=== PATIENT | female | born 1975 | race Caucasian/White ===

== ENCOUNTER 2019-01-24 12:10 | Inpatient (IN) | payer BC ==
[~2019-01-24] VITALS: Ht 162.6 cm; Wt 65.8 kg
[2019-01-24] MEDS ORDERED: CEFTRIAXONE SODIUM 1 GM ONE (13:03)
[2019-01-24] MEDS ORDERED: SODIUM CHLORIDE 0.9% 1000ML 1,000 ML IV ONE (13:04)
[2019-01-24 14:05] LABS: APPEARANCE,URINE Clear (CLEAR); BILIRUBIN,URINE Negative (NEGATIVE); COLOR,URINE Yellow (YELLOW); GLUCOSE, URINE (UA) Negative (NEGATIVE); KETONES,URINE Negative (NEGATIVE); LEUKOCYTE ESTERASE ,URINE Trace (NEGATIVE); NITRATE,URINE Negative (NEGATIVE); OCCULT BLOOD,URINE Small (NEGATIVE); PROTEIN,URINE Negative (NEGATIVE); UROBILINOGEN,URINE 0.2 mg/dL (0.2-1.0)
[2019-01-24 14:17] LABS: BACTERIA,URINE Rare /HPF (None Seen); RBC,URINE 0-1 /HPF (0-1); SQUAMOUS EPITHELIAL CELL,UR 0-2 /HPF (0-2); WBC,URINE 0-1 /HPF (0-1)
[2019-01-24] MEDS ORDERED: KETOROLAC TROMETHAMINE 30MG/ML ONE (14:42)
[2019-01-24] MEDS ORDERED: ONDANSETRON HCL 4 MG/2 ML VIAL ONE (14:42)
[2019-01-24 14:50] LABS: BASOPHILS % (AUTO) 0.5 % (0.0-5.0); HEMATOCRIT 37.3 % (36-48); LYMPHOCYTES % (AUTO) 17.6 % (21.0-51.0); MEAN CORPUSCULAR HEMOGLOBIN 36.8 pg (27.0-33.0); MEAN CORPUSCULAR HGB CONC 34.7 g/dL (32.0-36.0); MEAN CORPUSCULAR VOLUME 106.1 fL (79-99); NEUTROPHILS % (AUTO) 69.9 % (40.0-77.0); PLATELET COUNT (AUTO) 198 K/uL (130-400); RED BLOOD CELL COUNT(AUTO) 3.51 MIL/uL (4.00-5.50); RED CELL DISTRIBUTION WIDTH 13.2 % (11.0-15.5)
[2019-01-24 15:03] LABS: CREATININE 0.7 mg/dL (0.5-1.5); POTASSIUM 3.3 mmol/L (3.5-5.1)
[2019-01-24] MEDS ORDERED: MORPHINE SULFATE 5 MG/ML VIAL ONE (15:05)
[2019-01-24 15:06] LABS: INR 1.01 (0.85-1.15); PARTIAL THROMBOPLASTIN TIME 25.7 SEC (26.3-35.5); PROTHROMBIN TIME 10.6 SEC (9.6-11.6)
[2019-01-24 15:07] LABS: ALBUMIN 3.7 g/dL (3.5-5.0); BILIRUBIN,TOTAL 0.7 mg/dL (0.2-1.0); MAGNESIUM 2.6 mg/dL (1.80-2.40); TOTAL PROTEIN, SERUM 6.9 g/dL (6.0-8.3)
[2019-01-24 15:27] VITALS: BP 117/74
[2019-01-24 15:43] LABS: ERYTHROCYTE SEDIMENTATION RATE 6 MM/HR (0-20)
[2019-01-24] MEDS ORDERED: HYDROMORPHONE PCA 10 MG/50 ML 50 ML IV PRN (15:45)
[2019-01-24] MEDS ORDERED: NALOXONE HCL 0.4 MG/1 ML ML IVP PRN (15:45)
[2019-01-24] MEDS ORDERED: ALPRAZOLAM 1 MG TAB PO PRN (17:15)
[2019-01-24] MEDS ORDERED: LACTULOSE 20 GM/30 ML UDCUP PO PRN (17:15)
[2019-01-24] MEDS: MORPHINE SULFATE 5 MG/ML VIAL IVP PRN (17:24)
[2019-01-24] MEDS: SODIUM CHLORIDE 0.9% 1000ML 1,000 ML IV SCH (18:08)
[2019-01-24 19:38] VITALS: BP 137/80
[2019-01-24] MEDS: ACETAMINOPHEN 325 MG TAB PO PRN (20:28)
[2019-01-24] MEDS: ONDANSETRON HCL 4 MG/2 ML VIAL IVP PRN (23:26)
[2019-01-25] VITALS: BP 142/84
[2019-01-25] MEDS: PHARMACY COMMUNICATION MISC SCH ×2 (01:15→08:27)
[2019-01-25 04:00] VITALS: BP 131/82
[2019-01-25] MEDS: SODIUM CHLORIDE 0.9% 1000ML 1,000 ML IV SCH ×3 (04:06→21:23)
[2019-01-25] MEDS: ONDANSETRON HCL 4 MG/2 ML VIAL IVP PRN ×3 (05:30→21:23)
[2019-01-25 06:01] LABS: BASOPHILS % (AUTO) 0.4 % (0.0-5.0); EOSINOPHILS % (AUTO) 1.6 % (0.0-8.0); HEMATOCRIT 32.7 % (36-48); LYMPHOCYTES % (AUTO) 6.2 % (21.0-51.0); MEAN CORPUSCULAR HEMOGLOBIN 36.9 pg (27.0-33.0); MEAN CORPUSCULAR HGB CONC 34.6 g/dL (32.0-36.0); MEAN CORPUSCULAR VOLUME 106.4 fL (79-99); MONOCYTES % (AUTO) 9.5 % (3.0-13.0); NEUTROPHILS % (AUTO) 82.3 % (40.0-77.0); NUCLEATED RED BLOOD CELLS 0.1 % (0.0-0.19); PLATELET COUNT (AUTO) 133 K/uL (130-400); RED BLOOD CELL COUNT(AUTO) 3.08 MIL/uL (4.00-5.50); RED CELL DISTRIBUTION WIDTH 12.9 % (11.0-15.5); WHITE BLOOD COUNT (AUTO) 9.7 K/uL (4.8-10.8)
[2019-01-25 06:11] LABS: CREATININE 0.8 mg/dL (0.5-1.5); POTASSIUM 3.4 mmol/L (3.5-5.1)
[2019-01-25 08:00] VITALS: BP 103/76
[2019-01-25] MEDS: ALPRAZOLAM 1 MG TAB PO PRN ×2 (08:29→23:48)
[2019-01-25 11:38] VITALS: BP 103/62
--- NOTE | 2019-01-25 12:22 | NUR ---
DC PLAN PER PATIENT, STATES SHE IS INDEPENDENT, LIVES WITH MOTHER AND BROTHER, NO PROVIDER, HAS WALKER, CANE AND WHEELCHAIR AND FEELS SAFE AT HOME. Addendum: 01/25/19 at 1223 by JONATAN BARBOSA RN CM Amended: Links added.
[2019-01-25] MEDS: KETOROLAC TROMETHAMINE 30MG/ML IV SCH (13:38)
[2019-01-25] MEDS: CEFTRIAXONE SODIUM 1 GM IVP SCH (13:39)
--- NOTE | 2019-01-25 13:54 | NUR ---
DR SIDRA EMERSON REGARDING USE OF PICC LINE- STATED OK TO USE, START POTASSIUM PROTOCOL AND DC AFTER BM NOTED AND CARRIED OUT
[2019-01-25] MEDS ORDERED: POTASSIUM CHLORIDE 10% ELIXIR 20 MEQ/15 ML UDCUP PO PRN (14:15)
[2019-01-25] MEDS ORDERED: POTASSIUM CHLORIDE 20MEQ/100ML 100 ML IV PRN (14:15)
[2019-01-25] MEDS ORDERED: LIDOCAINE HCL-MPF 1% 2ML VIAL IV PRN (14:15)
[2019-01-25 15:56] VITALS: BP 108/68
[2019-01-25] MEDS: POTASSIUM CHLORIDE 20 MEQ ERTAB PO PRN ×2 (16:07→18:11)
[2019-01-25 20:06] VITALS: BP 123/73
--- NOTE | 2019-01-25 23:50 | NUR ---
NOTE PATIENT DRANK HER TEA THAT SHE USES TO HAVE BM, BUT IT HAS NOT GIVEN HER ANY RESULTS SO FAR. OFFERED HER THE LACTULOSE LAXATIVE, BUT SHE SAYS SHE DOES NOT WANT TO TAKE IT AT THIS TIME.
[2019-01-26 00:06] VITALS: BP 110/81
--- NOTE | 2019-01-26 01:30 | NUR ---
NOTE PATIENT REMAINS WITHOUT HAVING A BM. MENTIONED LACTULOSE TO HER AGAIN. SHE SAYS THE REASON SHE DOES NOT WANT TO TAKE IT IS BECAUSE SHE GET A LOT OF GAS AND DISCOMFORT WITH THAT MEDICATION. WANTS TO CONTINUE TO TRY HER TEA
--- NOTE | 2019-01-26 03:15 | NUR ---
NOTE OFFERED PATIENT LACTULOSE ONCE AGAIN, BUT DECLINED. SAYS SHE WANTS TO WAIT TO DR VALENTE TO ASK HIM FOR A DIFFERENT LAXATIVE. CONTINUES DRINKING LIQUIDS AND HAVING VOMITING EPISODES. MEDICATING WITH ZOFRAN FOR NAUSEA AND ENCOURAGING PATIENT TO HOLD OFF ON DRINKING FLUIDS WHILE SHE IS NAUSEATED. ACKNOWLEDGES UNDERSTANDING.
[2019-01-26] MEDS: ONDANSETRON HCL 4 MG/2 ML VIAL IVP PRN ×3 (03:18→18:48)
[2019-01-26 04:06] VITALS: BP 126/76
[2019-01-26] MEDS ORDERED: CLON2TAB11 PO (04:30)
--- NOTE | 2019-01-26 06:58 | NUR ---
ROUNDS DR. VALENTE HERE TO SEE PATIENT. RECEIVED ORDERS FOR OK TO CONTINUE HER HOME MEDICATION, BENADRYL FOR ITCHING ON HER BACK, MOM FOR LAXATIVE AND IF INEFFECTIVE, DULCULAX SUPP. ALSO TO DO A BLADDER SCAN TO SEE IF SHE IS RETAINING SHE HAS HISTORY OF THIS IN THE PAST HE SAYS.
[2019-01-26] MEDS ORDERED: MAGNESIUM HYDROXIDE 30 ML/UDCUP PO PRN (07:00)
[2019-01-26 08:00] VITALS: BP 99/60
[2019-01-26] MEDS: SODIUM CHLORIDE 0.9% 1000ML 1,000 ML IV SCH ×2 (09:15→22:37)
[2019-01-26] MEDS: CLONAZEPAM 2 MG TABLET PO SCH ×3 (09:35→23:19)
[2019-01-26] MEDS: POTASSIUM CHLORIDE 20 MEQ ERTAB PO PRN ×3 (09:36→18:48)
[2019-01-26] MEDS: KETOROLAC TROMETHAMINE 30MG/ML IV SCH (09:36)
--- NOTE | 2019-01-26 10:22 | NUR ---
PT SHOWER PT REQUESTING SHOWER AT THIS TIME. STATED SHE HAS "PERSONAL REASONS" TO WHY SHE WANTS TO SHOWER. FREEMAN GERARDO ASSISTING PT TO SHOWER AND PROVIDING LINENS
[2019-01-26] MEDS: DIPHENHYDRAMINE HCL 25 MG CAPSULE PO PRN ×2 (10:48→23:19)
[2019-01-26] MEDS: ALPRAZOLAM 1 MG TAB PO PRN ×2 (10:48→18:48)
--- NOTE | 2019-01-26 11:30 | NUR ---
PT DONE WITH SHOWER PT DONE WITH SHOWER. THIS NURSE EXPLAINED TO PT THAT SHE WOULD BENEFIT FROM LAYING DOWN AND RELAXING FOR A MOMENT TO LET HER BODY REST. THIS NURSE PLACED PT TO BED WITH SEVERAL BLANKETS AND 4 HEATING PACKS SPORADICALLY AROUND BODY PT STATES SHE IS COLD. THIS NURSE TURNED OFF ALL LIGHTS AND ATTEMPTED TO TURN OFF TV TO WHICH PT STATES TO LEAVE IT ON. VOLUME TURNED DOWN. THIS NURSE LEFT ROOM WITH PT IN BED, EYES CLOSED AND A QUIET ENVIRONMENT. WILL CONT MONITOR
[2019-01-26] MEDS: CEFTRIAXONE SODIUM 1 GM IVP SCH (11:36)
[2019-01-26 12:00] VITALS: BP 121/59
--- NOTE | 2019-01-26 12:14 | NUR ---
PICC LINE THIS NURSE ENTERED ROOM AT THIS TIME TO ASSESS PT PROGRESS AND BEHAVIOR. PT SEEN WITH PICC TUBING TAUT AND STREWN ACROSS ROOM WHILE PT WAS DIGGING THROUGH BELONGINGS. THIS NURSE ASSESSED SITE AND NOTED DRESSING ON PICC LIFTING OFF ARM ALMOST EXPOSING CATHETERS. THIS NURSE THEN BEGAN EDUCATING PT ON IMPORTANCE OF BEING AWARE OF PICC LINE AND CONNECTED TUBING. PT VERBALIZED UNDERSTANDING
[2019-01-26] MEDS: BISACODYL 10 MG SUPP.RECT RC PRN (12:30)
[2019-01-26 16:00] VITALS: BP 120/70
--- NOTE | 2019-01-26 19:00 | NUR ---
PT SHOWER PT SHOWERED X 4 TIMES THIS SHIFT STATING SHE FELT "DIRTY". PT ASSISTED BY FUNERAL HOME MANAGER AND NURSE EVERY TIME. NEW LINEN AND GOWN AND SOCKS, TOWELS PROVIDED X 4 TIMES.
--- NOTE | 2019-01-26 19:55 | NUR ---
NOTE PATIENT REPORTS SHE HAS NOT HAD ANY BOWEL MOVEMENTS TODAY AFTER HAVING RECEIVED THE LAXATIVES ORDERED BY DR. VALENTE. SHE CONTINUES WITH RECURRENT NAUSEA THAT GETS RELIVED WITH ZOFRAN AND SOME PERIODIC VOMITING EPISODES AFTER DRINKING A LARGE AMOUNT OF FLUIDS AT ONCE. ENCOURAGED HER TO TAKE LESS FLUID OR JUST TAKE ICE CHIPS TO MINIMIZE VOMITING. SHE ACKNOWLEDGES UNDERSTANDING RECOMMENDATIONS. PATIENT SAYS SHE DOES NOT FEEL WELL TO GO HOME YET. CALLED DR. VALENTE TO UPDATE HIM ON PATIENT. LEFT MESSAGE ON VOICEMAIL.
[2019-01-26 20:16] VITALS: BP 116/68
[2019-01-27] VITALS (7 sets, daily range): BP systolic 87–144; BP diastolic 50–81
[2019-01-27] MEDS: ONDANSETRON HCL 4 MG/2 ML VIAL IVP PRN ×2 (01:24→08:20)
[2019-01-27] MEDS: ACETAMINOPHEN 325 MG TAB PO PRN (01:28)
--- NOTE | 2019-01-27 01:38 | NUR ---
NOTE PATIENT REPORTS HAVING NAUSEA. MEDICATED WITH ZOFRAN. PATIENT ALSO REPORTS HAVING HAVING URGENCY AND SHE HAS JUST COME BACK FROM URINATING A FEW MINUTES AGO. DID A BLADDER SCAN POST VOID. SHE HAD 215 ML READING POST VOID RESIDUAL. PLACE NUN CAP AND INSTRUCTED THAT WE WILL BE MEASURING HER URINE OUTPUT. WILL REINFORCE/REMIND PERIODICALLY SHE TENDS TO FORGET. CONTINUES TO USE REGIONAL COORDINATOR FOR PAIN CONTROL. SHE ALSO KEEPS ASKING FOR JUICES. HAVE KEPT REMINDING HER TO KEEP HER FLUID INTAKE TO SIPS AND NOT FREE DRINKING TO MINIMIZE HER VOMITING EPISODES. SHE ACKNOWLEDGES AND SAYS WILL TRY TO FOLLOW IT. PATIENT REPORT SHE IS NOT SLEEPY. SHE HAS NOT SLEPT YESTERDAY NIGHT OR TONIGHT SO FAR. IN REPORT WAS TOLD BY DAY NURSE SHE DID NOT SLEEP EITHER. INQUIRED WITH HER IF SHE TAKES ANY MEDICATIONS TO HELP HER SLEEP, BUT SAYS SHE HAS BEEN PRESCRIBED ONE AND DOES NOT LIKE HOW IT MAKES HER FEEL SO SHE DOES NOT TAKE IT.
[2019-01-27] MEDS: SODIUM CHLORIDE 0.9% 1000ML 1,000 ML IV SCH ×2 (05:15→12:51)
--- NOTE | 2019-01-27 05:30 | NUR ---
NOTE PATIENT TOOK SHOWER. SHE FELT WEAK AFTERWARDS AND HELPED HER INTO BED. INSTRUCTED HER TO STAY IN BED UNTIL IT PASSES AND SHE FEELS BETTER, SHE TENDS TO SPEND MOST OF THE TIME WAKING AROUND AND MINIMAL IN BED LAYING DOWN.
[2019-01-27] MEDS: ALPRAZOLAM 1 MG TAB PO PRN (06:32)
[2019-01-27] MEDS: FAMOTIDINE 20MG TAB 20 MG TAB PO PRN ×2 (06:39→08:20)
--- NOTE | 2019-01-27 06:39 | NUR ---
NOTE PATIENT REPORTS SHE HAS PAIN AND POINTS TO EPIGASTRIC AREA AND UPPER ABDOMEN. UNABLE TO CLEARLY DESCRIBE PAIN WHEN ASKED SHE DIVERTS AND CHANGES CONVERSATION TOPIC. SHE HAS PEPCID ON HER PRN LIST. MEDICATED WITH IT. ALSO FEELS ANXIOUS SO MEDICATED WITH XANAX WELL.
--- NOTE | 2019-01-27 06:44 | NUR ---
NOTE DR. VALENTE HERE TO SEE PATIENT. INFORMED HER OF CONTINUED NAUSEA/VOMITING AND UNABLE TO KEEP LIQUID DIET DOWN. ALSO LAXATIVE GIVEN YESTERDAY PATIENT REPORTS HAVE NOT HAD ANY RESULTS IN HAVING A BM. PATIENT HAS NOT SLEPT AT ALL FOR 2 NIGHTS. AND HAS SHOWN MANY EPISODES OF ANXIETY. DR. VALENTE TOLD PATIENT THAT HE HAD BEEN HOPING FOR HER TO BE ABLE TO DISCHARGE HER SOON BUT WITH CURRENT SYMPTOMS SHE NEEDS TO STAY AND BE SEEN BY A GI DOCTOR. ORDERS RECEIVED FOR GI ONCALL CONSULT. PATIENT INQUIRED IF IT WOULD BE DR. Brenden BARBOSA (SAYS SHE HAS SEEN HIM INTHE PASSED) LOOKED UP ON THE ONCALL SCHEDULE AND IT SAYS IS DR. BARRETO. INFORMED PATIENT WELL PLACED ORDER IN COMPUTER.
--- NOTE | 2019-01-27 07:00 | NUR ---
PT SHOWERED PT SHOWERD. LINENS, TOWELS AND GOWN PROVIDED BY NATIONAL OPELINT ANALYST
--- NOTE | 2019-01-27 08:15 | NUR ---
PT PLACED TO BED PT HELPED TO BED BY THIS NURSE PT WAS LOSING EYES AND HEAD ROLLING BACK WHILE STANDING UP. PT HAS NOT SLEPT X 2 DAYS. (DR VALENTE MADE AWARE). PT STATES SHE HAS NOT BEEN RECEIVING ALL HER MEDS HOWEVER DR VALENTE STATES SHE IS. PT ASSISTED TO BED AT THIS TIME R/T DROWSINESS. WILL CONT TO MONITOR
--- NOTE | 2019-01-27 08:15 | NUR ---
MEDS THIS NURSE ALSO ATTEMPTED TO ADMINISTER MORNING MEDICATIONS WHIL IN ROOM WITH PATIENT. PATIENT VISIBLY DROWSY AND DOZING IN AND OUT OF SLEEP WHILE STANDING. NARCOTICS HELD AT THIS TIME
[2019-01-27] MEDS: CLONAZEPAM 2 MG TABLET PO SCH ×3 (08:20→21:00)
[2019-01-27] MEDS: KETOROLAC TROMETHAMINE 30MG/ML IV SCH ×2 (08:20→09:00)
--- NOTE | 2019-01-27 09:00 | NUR ---
PT CAME OUT OF ROOM PT CAME OUT OF ROOM STATING SHE NEEDED HELP. UPON ENTRANCE- PT HAD IV TUBING WRAPPED AROUND POLE AND HAD PICC LINE PORT NOTED TO BE PULLING FROM THE TENSION OF PT BEING ACROSS THE ROOM. THIS NURSE EDUCATED PT ON IMPORTANCE OF BEING AWARE OF PICC LINE AND TUBING. PT VERBALIZED UNDERSTANDING. PT THEN STATES SHE WAS REQUESTING HELP TO SHOWER AFTER SOILING THE BED WITH FECES. AT THIS TIME PT IS EROS WEARING BRA AND SHEETS ARE OFF OF BED AND THROWN IN SHOWER. THIS NURSE LEFT ROOM TO GET SUPPLIES TO COVER PICC LINE WHILE PT SHOWERS AND ASK OWNER/OPERATOR TO ASSIST PATIENT. UPON ENTERING ROOM AGAIN THIS NURSE ASKED IF PT HAD A SUFFICIENT ENOUGH BOWEL MOVEMENT AND IF I COULD SEE IT TO REPORT TO GI MD AND PCP TO WHICH PT STATED " WHY DOES IT MATTER? WHY DO YOU NEED TO SEE MY POOP? YOU KNOW WHY I AM HERE. YOU ARE TAKING AWAY THE ONLY DIGNITY I HAVE" THIS NURSE EXPLAINED TO THE PT THAT GIVEN THE CIRCUMSTANCES OF HER ADMISSION AND WHY SHE IS HERE, IT IS ONE OF THE FACTORS THAT PLAY IN TO THE DIAGNOSIS. PT BECAME VERY AGITATED AFTER THIS DISCUSSION AND STATED SHE FELT DISRESPECTED. THIS NURSE TRIED TO EXPLAIN TO PATIENT THAT WE ARE NOT HERE TO GLOBE CLEANER HER IT IS ONLY A PART OF OUR JOB. THIS NURSE ALSO ATTEMPTED TO EXPRESS TO THE PATIENT THE CONCERN OVER HER BEHAVIORS AND INABILITY TO SIT STILL AND FOLLOW DEMANDS REGARDING HER CARE AND SUGGESTIONS BY NURSE/STAFF. THIS NURSE ASKED PT IF THERE ARE ANY FAMILY MEMBERS WILLING TO COME IN TO CONSOLE PATIENT AND HELP HER RELAX WHILE WE DEAL WITH HER UNDERLYING GI ISSUES TO WHICH PT STATES " YOU ARE OBVIOUSLY THE ONE THAT NEEDS TO BE EDUCATED ON MY CONDITION AND NOT MY FAMILY YOU ARE BEING INSENSITIVE TO ME RIGHT NOW. WOULD YOU LIKE YOUR FAMILY TO HEAR THIS IF THEY WERE IN THE HOSPITAL?" THIS NURSE ATTEMPTED TO REDIRECT PT TO THE SHOWER WITH OWNER/OPERATOR TO WHICH PT STATES " LEAVE ME ALONE I NEED MY PRIVACY" THIS NURSE ATTEMPTED TO REDIRECT PT TO THE ISSUE THAT SHE HAS RECEIVED SEVERAL NARCOTICS AND CANNOT BE LEFT ALONE TO SHOWER DUE TO HIGH RISK FOR FALLS. THIS PT CONTINUED TO SPEAK ON THE MATTER OF DISRESPECT. ELECTROMECHANICAL ENGINEER CALLED AT THIS TIME
--- NOTE | 2019-01-27 09:45 | NUR ---
CUPOLA MAN IN TO TALK WITH PATIENT HOUSE SUP IN ROOM TO CONSOLE PT
--- NOTE | 2019-01-27 09:54 | NUR ---
HS EXITED ROOM HOUSE SUP EXITED ROOM TO TELL THIS NURSE PT WILL BE TRANSFERED TO ROOM 327
--- NOTE | 2019-01-27 09:56 | NUR ---
PT EXITED ROOM PT EXITED ROOM STATING SOMEONE TOOK HER CLOTHES THAT SHE TOOK OFF AFTER SOILING HER SELF. PT STATES IT MIGHT HAVE BEEN MEDICAL TYPIST. MEDICAL TYPIST MADE AWARE.
--- NOTE | 2019-01-27 10:02 | NUR ---
FOUND CLOTHES AFTER SEVERAL MINUTES OF LOOKING THROUGH SOILED LINEN ROOM, PT STATES SHE FOUND HER CLOTHES IN TRASH CAN IN RESTROOM IN A BAG WHERE SHE FORGOT SHE PLACED THEM AFTER SOILING THEM
--- NOTE | 2019-01-27 10:30 | NUR ---
. RECEIVED REPORT AND PT TO ROOM . DILAUDID WELDING MACHINE OPERATOR PLASMA ARC IN USE WITH 4.3 ML IN CASSETTE AND D5NS AT 100ML/HR. RESTLESS AND ASKING FOR TORADOL. INFORMED DAILY DOSE HAD BEEN GIVEN.
--- NOTE | 2019-01-27 10:34 | NUR ---
1037 Met with pt to address her concerns regarding staff states nurse and radio personality very disrespectful and may her feel humiliated on the way they ask to see her "oop" inform its part of the process do to her diagnosis. inform concerns will be pass to the staff and Meanwhile pt agreed with assignment and room change but will like for staff to be "reprimanded" inform report will be given to director she verbalized understanding. primary nurse and radio personality made aware of the above, pt to be transfer to room 327 charge nurse also made aware of the above. Pt call back states now her pants and undergarment with the "oop" are missing . as per PLATE GLASS POLISHER they were found in the bathroom trach where pt had place them. Jesse mendenhall
--- NOTE | 2019-01-27 11:00 | NUR ---
DR MARY LOU EMERSON REGARDING GI CONSULT. PAGED TO NURSE ALEXY AT [phone]
--- NOTE | 2019-01-27 11:14 | NUR ---
REPORT AND ROOM TRANSFER REPORT GIVEN TO TEJINDER RN, CN AND PT TRANSFERRED TO [facility]
--- NOTE | 2019-01-27 11:45 | NUR ---
GI CONSULT IN PLACE AND DR. BARRETO HAS CALLED. PT. NAME, ROOM # AND DX. GIVEN.
[2019-01-27] MEDS: CEFTRIAXONE SODIUM 1 GM IVP SCH (12:36)
--- NOTE | 2019-01-27 19:00 | NUR ---
DR. BARRETO CALLED IN WITH ORDERS ENTERED AND ENDORSED TO INCOMING NURSE
--- NOTE | 2019-01-27 19:30 | NUR ---
SHIFT REPORT RECEIVED SHIFT REPORT FROM [facility]. PATIENT HAS ORDERS FOR CLEAR LIQUID DIET BUT HAS CHIPS, SALSA, AND CHEESE CAKE AT BEDSIDE. PATIENT IS CURRENTLY RESTING COMFORTABLY AND IS ASLEEP.
--- NOTE | 2019-01-27 21:00 | NUR ---
PATIENT LETHARGIC, IS AROUSABLE TO VOICE BUT FALLS BACK ASLEEP RIGHT AWAY. APPEARS TO BE IN A DAZE AND ANSWERS QUESTIONS SLOWLY. PATIENT HAS SCHEDULED CLONAZEPAM 2MG TO BE GIVEN, WILL ATTEMPT TO GIVE AT A LATER TIME ONCE PATIENT IS MORE ALERT.
--- NOTE | 2019-01-27 22:30 | NUR ---
NEW ORDERS PATIENT WAS MADE AWARE OF NEW ORDER'S RECEIVED BY DR. BARRETO REGARDING THE NG TUBE PLACEMENT, TAP WATER ENEMA, AND NPO STATUS. PATIENT STATED SHE "WOULD LIKE TIME TO THINK ABOUT IT" BEFORE AGREEING TO HAVE NG TUBE PLACED AND TAP WATER ENEMA. SHE STATED SHE WOULD LET PRIMARY NURSE KNOW WHEN SHE WAS READY.
[2019-01-28] VITALS (7 sets, daily range): BP systolic 100–132; BP diastolic 59–79
[2019-01-28] MEDS: MORPHINE SULFATE 5 MG/ML VIAL IVP PRN ×2 (00:21→15:03)
[2019-01-28] MEDS: ONDANSETRON HCL 4 MG/2 ML VIAL IVP PRN ×5 (00:26→21:09)
[2019-01-28] MEDS: SODIUM CHLORIDE 0.9% 1000ML 1,000 ML IV SCH ×3 (01:15→21:15)
[2019-01-28] MEDS: KETOROLAC TROMETHAMINE 30MG/ML IV SCH (06:17)
[2019-01-28] MEDS: CLONAZEPAM 2 MG TABLET PO SCH ×3 (08:43→21:09)
[2019-01-28] MEDS: HYDROMORPHONE HCL 0.5 MG/0.5 ML ML IVP PRN ×4 (08:44→21:10)
[2019-01-28] MEDS: CEFTRIAXONE SODIUM 1 GM IVP SCH (15:03)
[2019-01-28] MEDS: DIPHENHYDRAMINE HCL 25 MG CAPSULE PO PRN (15:03)
--- NOTE | 2019-01-28 16:10 | NUR ---
RD Notification Pt admitted for Intractable headache, nausea, vomiting. Pt history of neurogenic bladder and bowel, hernia. Pt with Clear Liquid diet, PO intake at 75%, Pending Gastroenterology evaluation as per EMR. 3X attempt to visit, Pt in discussion with Nursing. Recommend Ensure Clear with meals at this time, RD to follow up. Pt LBM 01/26. Pt monitored labs: Ca 8.0, Mg 2.60, Lipase 82. RD to continue to monitor. Please notify RD as additional nutrition concerns arise. Thank you. Addendum: 01/28/19 at [address] Amended: Links added.
--- NOTE | 2019-01-28 17:02 | NUR ---
PAIN MEDICATION Patient stated she needed pain medication for level 10 and dilaudid was offered. She had had morphine earlier and was not time for it. Initially she accepted dilaudid and medication was pulled and scanned. Then, as medication was about to be administered patient did not verbalized OK to nurse when nurse asked if she could go ahead and administer it. Pt went back and forth, back and forth about receiving dilaudid at this time. Requested to have all her pain medications explained several times, which was done. Pt asked for the nurse's word that she would receive her pain medication when she needed it. Patient was informed that if she was in pain and if it was not time to administer a medication, then nurse would call her physician. Patient stated she did not want for her doctor to be called. Patient was reassured several times that her pain needs would be addressed as they aroused, to call her nurse and notify her of her pain. But she decided at the last moment she was going to wait until 6:00pm for her pain medication. Charge nurse updated.
--- NOTE | 2019-01-28 18:15 | NUR ---
NURSING OBSERVATION PT WAS GIVEN HER PAIN MED, PT FEELS LIKE SHE HAS TO JUSTIFY HERSELF ON GETTING PAIN MEDICATION, PT WOULD LIKE FOR DR. VALENTE TO START DATA ENTRY MACHINE OPERATOR MORPHINE, OFFERED TO CALL DR. VALENTE BUT LATER SAID SHE WILL TALK TO HIM IN THE MORNING.
[2019-01-29 03:00] VITALS: BP 101/72
[2019-01-29] MEDS: ONDANSETRON HCL 4 MG/2 ML VIAL IVP PRN ×3 (04:01→23:00)
[2019-01-29] MEDS: MORPHINE SULFATE 5 MG/ML VIAL IVP PRN (04:02)
[2019-01-29] MEDS: HYDROMORPHONE HCL 0.5 MG/0.5 ML ML IVP PRN ×3 (06:39→15:38)
[2019-01-29] MEDS: SODIUM CHLORIDE 0.9% 1000ML 1,000 ML IV SCH (07:15)
[2019-01-29 08:00] VITALS: BP 96/62
[2019-01-29] MEDS: CLONAZEPAM 2 MG TABLET PO SCH ×3 (10:41→22:07)
[2019-01-29] MEDS: KETOROLAC TROMETHAMINE 30MG/ML IV SCH (10:43)
[2019-01-29] MEDS: DIPHENHYDRAMINE HCL 25 MG CAPSULE PO PRN ×2 (10:49→22:08)
[2019-01-29 12:00] VITALS: BP 123/74
[2019-01-29] MEDS: CEFTRIAXONE SODIUM 1 GM IVP SCH (14:58)
--- NOTE | 2019-01-29 15:43 | NUR ---
NURSING NOTE Patient's issue today is pain. Also, unable to have bowel movement. And nausea and emesis X 1. Patient has been drinking large amounts of coffee and teas that she has from home. However, states she has not have a bowel movement. Her abdomen is soft, with normoactive bowel sounds but it is noted distended. She has been medicated for nausea. She has had offered twice laxative. Initially she stated she would take a suppository, but not lactulose and not milk of magnesia. Then she stated she was going to wait before taking the suppository. At this time she reported again that she has had no bowel movement. The suppository was offered again. She thought about it and stated she was going to wait for a little bit. Her pain has been addressed with Dr. Kenny. He stated no morphine and D/C the morphine patient was on and kept on dilaudid 0.5mg IV Q3H PRN and patient has been receiving it. Her abdominal pain was also reported to Dr. Kenny and her neck pain as well. He ordered an EKG which was done and showed normal sinus rhythm. And also ordered x-rays of the areas where patient reports pain. The X-Rays were done and results are pending. A psychiatrist consult was also ordered S/T her history. Psychiatrist note in chart. Patient has been comin got nurse's station multiple times and calling nurse as soon as nurse has just had a conversation with her. She has come to other patient's rooms where nurse is wanting to talk to nurse at that very moment and place. She brought a hospital bucket with a very large amount of clear, orange fluid, which she claimed was her emesis. Dr. Kenny has been kept updated on her requests.
[2019-01-29 16:00] VITALS: BP 118/74
[2019-01-29] MEDS ORDERED: HYDROMORPHONE PCA 10 MG/50 ML 50 ML IV PRN (16:15)
[2019-01-29 19:00] VITALS: BP 117/73
[2019-01-29] MEDS ORDERED: HYDROMORPHONE 1 MG/1 ML AMP IVP ONE (19:45)
[2019-01-29 23:00] VITALS: BP 114/60
[2019-01-30 03:00] VITALS: BP 104/66
[2019-01-30] MEDS: SODIUM CHLORIDE 0.9% 1000ML 1,000 ML IV SCH ×2 (03:15→23:15)
[2019-01-30 05:14] LABS: HEMATOCRIT 27.6 % (36-48); MEAN CORPUSCULAR HEMOGLOBIN 37.5 pg (27.0-33.0); MEAN CORPUSCULAR VOLUME 107.4 fL (79-99); NUCLEATED RED BLOOD CELLS 0.4 % (0.0-0.19); PLATELET COUNT (AUTO) 140 K/uL (130-400); RED BLOOD CELL COUNT(AUTO) 2.57 MIL/uL (4.00-5.50); RED CELL DISTRIBUTION WIDTH 13.1 % (11.0-15.5); WHITE BLOOD COUNT (AUTO) 2.3 K/uL (4.8-10.8)
[2019-01-30 05:23] LABS: CREATININE 0.6 mg/dL (0.5-1.5); POTASSIUM 3.5 mmol/L (3.5-5.1)
[2019-01-30 06:03] LABS: BASOPHILS % (MANUAL) 1 % (0-2); EOSINOPHILS % (MANUAL) 5 % (1-6); LYMPHOCYTES % (MANUAL) 28 % (22-44); MAN.DIFF COMMENT-IMPRESSION MANUAL DIFFERENTIAL; MONOCYTES % (MANUAL) 13 % (2-9); SEGMENTED NEUTROPHILS % 53 % (40-70)
[2019-01-30 06:04] LABS: PLATELET MORPHOLOGY COMMENT ADEQUATE
[2019-01-30 07:02] LABS: ALANINE AMINOTRANSFERASE 46 U/L (12-78); ALBUMIN 2.7 g/dL (3.5-5.0); ASPARTATE AMINOTRANSFERASE 50 U/L (10-37); BILIRUBIN,TOTAL 0.2 mg/dL (0.2-1.0); TOTAL PROTEIN, SERUM 4.9 g/dL (6.0-8.3)
[2019-01-30 07:17] LABS: BILIRUBIN,DIRECT < 0.1 mg/dL (0.0-0.3)
[2019-01-30 07:18] LABS: LIPASE < 50 U/L (114-286)
--- NOTE | 2019-01-30 08:00 | NUR ---
NEEDS TO BE MONITORED CLOSELY,STUMBLES AROUND ALOT AND DOES NOT FOLLOW COMMANDS Addendum: 01/30/19 at 2012 by ALEXY WAKEFIELD RN RN Amended: Links added.
[2019-01-30 08:47] VITALS: BP 121/64
[2019-01-30] MEDS: CLONAZEPAM 2 MG TABLET PO SCH ×3 (10:36→20:37)
[2019-01-30] MEDS: HYDROMORPHONE HCL 0.5 MG/0.5 ML ML IVP PRN ×3 (10:36→22:31)
[2019-01-30 11:00] VITALS: BP 102/60
--- NOTE | 2019-01-30 12:39 | NUR ---
PT WITH MULTIPLE TRIPS TO NURSE'S STATION WITH A VARIETY OF C/O. REQUESTING ORDER FOR PRN CLOBETASOL FOR PSORIASIS AND STATES FEELS THOUGH SHE IS DEVELOPING A "YEAST INFECTION". PT VERY ANXIOUS, REPORTS DR VALENTE TOLD HER SHE HAS AN "ABSCESS IN MY SPINE AND THAT'S WHY HE WANTED TO DO THE MRI TODAY." PT IS ALSO NOTED HAVING MULTIPLE LARGE AMOUNTS OF EMESIS, SOME NEARLY 2 LITERS, IMMEDIATELY AFTER DRINKING LARGE AMOUNTS OF FLUID (IE WATER AND COFFEE). REC'D ORDERS TO RE-COLLECT URINE FOR UA/UCX, AND CLOBETASOL REQUESTED. ALSO, TO INSTRUCT PT SLOW DOWN WHEN DRINKING FLUIDS, LIMIT CLEAR LIQUIDS TO 1 CUP AT A TIME. ORDERS ENTERED. ALSO REC'D ORDERS TO CONSULT DR DUEÑAS/NEURO. NOTIFIED DR LEANA BAEZ'S BAR CATCHER. SHE STATED DR DUEÑAS HAS GONE HOME FOR THE DAY, WILL BE ABLE TO SEE IN AM.
[2019-01-30] MEDS: CLOBETASOL PROPIONATE TP PRN (15:43)
[2019-01-30] MEDS: ONDANSETRON HCL 4 MG/2 ML VIAL IVP PRN (15:44)
[2019-01-30] MEDS: CEFTRIAXONE SODIUM 1 GM IVP SCH (15:48)
[2019-01-30 16:00] VITALS: BP 114/70
--- NOTE | 2019-01-30 16:00 | NUR ---
CONTINUES TO BMAKE TRIPS TO NURSES STATION FREQUENTLY WITH MULTIPLE C/O, PAIN NAUSEA NEEDS MORE PAIN MEDICATION AND ACCUSES NURSES OF NOT PAYING ATTENTION TO HER AND HOW SHE IS VERY SICK.
[2019-01-30 19:00] VITALS: BP 116/74
[2019-01-30] MEDS: DIPHENHYDRAMINE HCL 25 MG CAPSULE PO PRN (20:37)
--- NOTE | 2019-01-30 22:41 | NUR ---
Paged DR. Kenny regarding patient requesting IV benadryl for itchiness. Pending call back
[2019-01-30 23:00] VITALS: BP 121/73
[2019-01-31] MEDS: ONDANSETRON HCL 4 MG/2 ML VIAL IVP PRN ×3 (01:54→22:01)
[2019-01-31 03:00] VITALS: BP 121/75
[2019-01-31] MEDS: HYDROMORPHONE HCL 0.5 MG/0.5 ML ML IVP PRN ×4 (03:14→18:34)
[2019-01-31 06:06] LABS: BILIRUBIN,URINE Negative (NEGATIVE); COLOR,URINE Yellow (YELLOW); GLUCOSE, URINE (UA) Negative (NEGATIVE); KETONES,URINE Negative (NEGATIVE); LEUKOCYTE ESTERASE ,URINE Trace (NEGATIVE); NITRATE,URINE Negative (NEGATIVE); OCCULT BLOOD,URINE Negative (NEGATIVE); PROTEIN,URINE Negative (NEGATIVE); UROBILINOGEN,URINE 0.2 mg/dL (0.2-1.0)
[2019-01-31 06:08] LABS: APPEARANCE,URINE SLIGHTLY CLOUDY (CLEAR)
[2019-01-31 06:20] LABS: BACTERIA,URINE None Seen /HPF (None Seen); RBC,URINE None Seen /HPF (0-1); SQUAMOUS EPITHELIAL CELL,UR Rare /HPF (0-2); WBC,URINE 0-1 /HPF (0-1)
[2019-01-31 07:30] VITALS: BP 115/69
[2019-01-31] MEDS: CLONAZEPAM 2 MG TABLET PO SCH ×3 (08:14→22:01)
--- NOTE | 2019-01-31 09:00 | NUR ---
ASSESSMENT.C/O OF HURTING,ABD AND NECK , DILAUDID TYPING OFFICE WORKER IN USE BUT STATES DOES NOT REALLY HELP MUCH ASKING FOR DILAUDID BOLUS AND WANTS DR. VALENTE CALLED, SHE FEELS MORPHINE WILL HELP HER MORE
[2019-01-31 11:00] VITALS: BP 115/76
--- NOTE | 2019-01-31 13:00 | NUR ---
HAS SPENT MOST OF TIME MAKING TRIPS TO NURSES STATION AND [employer] MACHINE. SPILLING WATER, COFFEE AND WILL NOT FOLLOW ANY INST. GIVEN.AT ALL TIMES ASKING FOR NAUSEA OR PAIN MEDICATION AND WITH MULTIPLE C/O. KEEPS C/O OF NAUSEA AND WILL SHOW US AMNA FULL OF LIQUIDS WHICH DO NOT MAKE SENSE.
[2019-01-31] MEDS: CEFTRIAXONE SODIUM 1 GM IVP SCH (13:51)
--- NOTE | 2019-01-31 15:18 | NUR ---
Nutrition f/u: Pt with diet advanced to full liquid diet. At time of RD visit, pt with container filled with what she said was vomit. Pt with facial expression of pain. Pt states she has n/v with pain to her neck. Notified nursing staff about pt's concerns. Pt also requesting solid foods such as: steak, fish, vegetables and fruit. Explained to patient unable to advance diet due to her current symptoms. Pt verbalize understanding. Recommendations: Continue current diet therapy until n/v resolves. Monitor I/O's. Consult RD as nutrition concerns arise. When medically feasible, advance diet to GI soft/bland diet therapy. Addendum: 01/31/19 at [address] Amended: Links added.
[2019-01-31 16:00] VITALS: BP 118/70
--- NOTE | 2019-01-31 16:00 | NUR ---
ALL IV TUBINGS CHANGED OUT AGAIN TODAY, GETS HERSELF TANGLED UP WITH IV POLES AND PULL TUBING TIGHT . PICC LINE DRESSING ALSO CHANGED OUT DAILY SHE CONTINUES TO GET IT WET
[2019-01-31] MEDS: SODIUM CHLORIDE 0.9% 1000ML 1,000 ML IV SCH (19:15)
[2019-01-31] MEDS: CLOBETASOL PROPIONATE TP PRN (19:33)
[2019-01-31] MEDS: DIPHENHYDRAMINE HCL 25 MG CAPSULE PO PRN (22:01)
[2019-01-31] MEDS: POTASSIUM CHLORIDE 20 MEQ ERTAB PO PRN (22:03)
[2019-01-31 22:49] VITALS: BP 114/68
[2019-02-01 00:11] VITALS: BP 135/84
[2019-02-01] MEDS: HYDROMORPHONE HCL 0.5 MG/0.5 ML ML IVP PRN ×2 (03:26)
[2019-02-01] MEDS: DIPHENHYDRAMINE HCL 25 MG CAPSULE PO PRN ×2 (04:23→14:11)
[2019-02-01 05:04] VITALS: BP 139/75
[2019-02-01] MEDS: ALPRAZOLAM 1 MG TAB PO PRN (05:09)
--- NOTE | 2019-02-01 06:10 | NUR ---
MD ROUNDS DR. VALENTE HERE TO SEE PATIENT. GAVE HIM REPORT OF PATIENT'S BEHAVIOR ISSUES. RESTLESS, DOES NOT SLEEP, REPORTING THAT SHE IS THRISTY AND WANTS TO BE DRINKING FLUIDS WITHOUT MEASURE EVEN AFTER ENCOURAGING TO BE PRUDENT TO AVOID VOMITING/NAUSEA EPISODES, ASKING FOR BOLUS DOSE OF DILAUDID IN ADDITION TO SPRAY DRIER EVEN BEFORE THE TIME THAT SHE COULD HAVE IT GIVEN (Q3H PRN) SHE ALSO HAS RECEIVED BENADRYL AND CREAM FOR THE CONSTANT ITCHING SHE HAS, SHE HAS BEENS ASKED REGARDING BM, BUT SHE ANSWERS VAGUELY THAT SHE HAS NOT HAD ON FOR A LONG TIME AND THAT SHE HAS NOT EATEN SOLID FOOD FOR DAYS. SHE HAS BEEN OFFERED LAXATIVE, BUT HAS DECLINED. THIS MORNING I WITNESS WHEN SHE WAS SITTING TOILET AND SHE WAS PUTTING HER HAND ON HER BEHIND AND THEN CLEANING WHAT LOOKED LIKE VERY SOFT BROWN RUNNY STOOL. ASKED HER ABOUT IT, BUT SAYS SHE IS NOT HAVING A BM. DR. VALENTE SPOKE WITH HER REGARDING THE USE OF THE NARCOTIC, THAT HE WILL WAIT FOR DR. DUEÑAS'S RECOMMENDATION AND WILL DO AN ABDOMINAL XRAY TO SEE THAT SHE IS NOT CONSTIPATED ANY LONGER (HER ABDOMEN IS NOT DISTENDED AND IS VERY SOFT, COMPARED TO WHEN SHE WAS SEEN BY ME A FEW DAYS AGO). HE ALSO SPOKE TO HER A BOUT NOT USING THE NARCOTIC SINCE HE IS THINKING OF DISCHARGING HER HOME LATER TODAY.
--- NOTE | 2019-02-01 07:20 | NUR ---
ROUNDS PATIENT IS AMBULATING OUTSIDE OF ROOM WALKING WITH IV POLE RECEIVING COLLISION REPAIR TECHNICIAN DILAUDID AFTER BEING TOLD TO STAY IN BED AND ASK FOR ASSISTANCE WHEN NEEDING HELP. PATIENT HAS AN UNSTEADY GAIT, PATIENT TAKEN BACK TO BED AND BED ALARM SET. PATIENT IS ALSO REQUESTING PRN BOLUS OF DILAUDID FOR ABDOMINAL PAIN PATIENT HAS SLURRED SPEECH AND VITAL SIGNS ON LOW SIDE. MADE CHARGE NURSE MARISOL AWARE THAT PATIENT IS A HIGH RISK FOR FALLS AND NEEDS A SITTER.
--- NOTE | 2019-02-01 07:30 | NUR ---
CONSULT DR. DUEÑAS HERE. BRIEFLY SAW PATIENT. GAVE HIM REPORT. REVIEWED IMAGES OF MRI'S. NO PROCEDURES RECOMMENDED AT THIS TIME.
[2019-02-01 08:00] VITALS: BP 111/67
[2019-02-01] MEDS ORDERED: CYANOCOBALAMIN (VITAMIN B-12) 1,000 MCG TABLET PO SCH (09:00)
[2019-02-01] MEDS ORDERED: FOLIC ACID 1 MG TABLET PO SCH (09:00)
[2019-02-01] MEDS: BISACODYL 10 MG SUPP.RECT RC PRN (09:08)
[2019-02-01] MEDS: ONDANSETRON HCL 4 MG/2 ML VIAL IVP PRN (09:08)
[2019-02-01] MEDS: CLONAZEPAM 2 MG TABLET PO SCH ×2 (10:14→14:11)
[2019-02-01] MEDS ORDERED: KETOROLAC TROMETHAMINE 15MG/ML IV PRN (12:45)
--- NOTE | 2019-02-01 13:27 | NUR ---
SANTO Note: updated Mother CM spoke to Sunni [phone] pt's mother regarding possible dc today pending MD to round and give order. Mother states to call her once pt ready to DC and she will have son bean picker machine operator pt. Rafita BLANCHARD aware. Primary nurse aware. CM to cont to follow up.
[2019-02-01] MEDS: CEFTRIAXONE SODIUM 1 GM IVP SCH (14:11)
--- NOTE | 2019-02-01 15:40 | NUR ---
DR. DUMONT SPOKE WITH DR. DUMONT, MADE HIM AWARE PATIENT IS NON COMPLIANT WITH 24HR URINE COLLECTION. NEW ORDER D/C 24HR URINE COLLECTION AND OK TO SEND PATIENT HOME ON HIS STANDPOINT.
--- NOTE | 2019-02-01 16:52 | NUR ---
DISCHARGE DISCHARGE INSTRUCTIONS GIVEN TO PATIENT. MADE AWARE OF NEED TO FOLLOW UP WITH DR. VALENTE AND DR. VAZQUEZ. PATIENT VOICED UNDERSTANDING. NO NEW PRESCRIPTIONS. PATIENT AT THIS TIME DENIES ANY PAIN AND STATES SHE IS COMFORTABLE GOING HOME. PICC LINE TO RIGHT ARM REMOVED WITH NO COMPLICATIONS, PRESSURE DRESSING APPLIED. PATIENTS MOTHER GAVIOTA BOWERS MADE AWARE OF PATIENTS DISCHARGE WELL DISCHARGE INSTRUCTIONS. ALL QUESTIONS ANSWERED. PENDING PATIENTS FAMILY MEMBER TO ARRIVE FOR TRANSPORT HOME
[2019-02-01] MEDS ORDERED: DULOXETINE HCL 30 MG CAP PO SCH (21:00)
--- NOTE | 2019-02-02 11:00 | NUR ---
Patient not following instructions and keeps getting up, and constantly takes off and pulls on the IV tubing because she forgets that she is connected to the IV for her Dilaudid PCP and needs to be reminded to carry the pole with her. Very sleepy and drowsy and unsteady gait. Pt moved to room 310 with sitter until further orders. Addendum: 02/02/19 at 1412 by MARISOL PATEL RN This note was meant for 02/01/19 at 1100 Patient not following instructions and keeps getting up, and constantly takes off and pulls on the IV tubing because she forgets that she is connected to the IV for her Dilaudid PCP and needs to be reminded to carry the pole with her. Very sleepy and drowsy and unsteady gait. Pt moved to room 310 with sitter until further orders.
== END 2019-02-01 17:00 | disposition home or self-care (01) | DRG 389 ==
LOC: EDH 12:10 → OBSVTOIN 12:11 → EDHIP 12:11 → 4DH 15:22 → 4CH 01-25 00:15 → 3DH 01-27 11:10 → 3BH 02-01 11:38
PROVIDERS: ADMIT Internal Medicine; ATTEND Internal Medicine
PROC: 02HV33Z Insertion of Infusion Device into Superior Vena Cava, Percutaneous Approach (ICD-10-PCS; 2019-01-25)
PROC: 0D9670Z Drainage of Stomach with Drainage Device, Via Natural or Artificial Opening (ICD-10-PCS; principal; 2019-01-27)
DX: K56.609 Unspecified intestinal obstruction, unspecified as to partial versus complete obstruction (principal); K59.2 Neurogenic bowel, not elsewhere classified; G95.9 Disease of spinal cord, unspecified; K86.1 Other chronic pancreatitis; D61.818 Other pancytopenia; M47.12 Other spondylosis with myelopathy, cervical region; N31.9 Neuromuscular dysfunction of bladder, unspecified; K56.41 Fecal impaction; F41.9 Anxiety disorder, unspecified; G89.29 Other chronic pain; F31.9 Bipolar disorder, unspecified; M48.00 Spinal stenosis, site unspecified; M19.90 Unspecified osteoarthritis, unspecified site; J45.20 Mild intermittent asthma, uncomplicated; I10 Essential (primary) hypertension; L40.9 Psoriasis, unspecified; Z82.5 Family history of asthma and other chronic lower respiratory diseases; Z83.3 Family history of diabetes mellitus; Z82.49 Family history of ischemic heart disease and other diseases of the circulatory system; Z88.8 Allergy status to other drugs, medicaments and biological substances
CPT/HCPCS: 36415; 70360; 70450; 71045; 72141; 72146; 74018; 74176; 80048; 80053; 80076; 81001; 82150; 83690; 83735; 83883; 84132; 85025; 85027; 85610; 85651; 85730; 86334; 87088; 93005; C1894; G0378; J0696; J1170; J1885; J2270; J2405; J3480; J7030; Q0163

== ENCOUNTER → 2024-09-05 | Outpatient (CLI) | payer OTHER ==
[~2024-09-05] MED LIST: CLON2TAB11 PO
--- NOTE | 2024-09-05 12:19 | HMCIMG ---
PROCEDURE: VANNESA DIAGNOSTIC BILATERAL, MAMMO DX BILATERAL HISTORY: Rest pain COMPARISON: 04/23/2019 TECHNIQUE: Bilateral digital diagnostic mammogram with CAD was performed. No additional views were obtained. Tomographic images were obtained. FINDINGS: The breasts are heterogeneously dense, which may obscure small masses. There is no evidence of a dominant mass, or suspicious microcalcification. There is no evidence of nipple retraction or skin thickening. IMPRESSION: 1. Stable mammogram. BI-RADS: CATEGORY 2: BENIGN FINDINGS Recommend monthly self breast exam as well as annual clinical examination. A negative x-ray should not delay biopsy if a dominant or clinically suspicious mass is present, since 8-10% of cancers are not identified by mammography. Dense breasts particularly, may obscure an underlying neoplasm. Some of these may be detected clinically and therefore, clinical examination is an essential part of breast evaluation.
== END | disposition home or self-care (01) ==
LOC: RAH 10:49
PROVIDERS: ATTEND Internal Medicine
DX: R92.333 Mammographic heterogeneous density, bilateral breasts (principal); N64.4 Mastodynia
CPT/HCPCS: 77062; 77066

== ENCOUNTER → 2024-11-05 | Outpatient (CLI) | payer OTHER ==
--- NOTE | 2024-11-06 13:22 | HMCIMG ---
EXAMINATION: COMPLETE TRANSABDOMINAL ULTRASOUND OF PELVIS. CLINICAL HISTORY: Endocrine disorder. COMPARISON: CT abdomen and pelvis with contrast dated 01/27/2019. TECHNIQUE: Multiple real-time grayscale images of the pelvis were obtained with transabdominal transducers. In addition, color Doppler is medically necessary to perform to assess for vascularity and blood flow. FINDINGS: The uterus is anteverted, normal in caliber and measures 9.4 x 4.9 x 6.3 cm in the craniocaudal, AP, and transverse dimensions respectively. The endometrium measures approximately 0.8 cm. Cervix appears normal. The right ovary is normal in caliber and measures 2.3 x 2.8 x 2.9 cm. There is a follicular cyst that measures 1.6 x 2.3 x 1.6 cm. There is a cystic lesion that measures 3.5 x 3.8 x 3.4 cm in the left adnexa. The left ovary is not separately well visualized. There is no free fluid in the cul-de-sac. IMPRESSION: Right ovarian follicular cyst. Left adnexal simple cyst probably ovarian cyst. Recommend MRI pelvis with contrast. /[place]
== END | disposition home or self-care (01) ==
LOC: RAH 10:58
PROVIDERS: ATTEND Internal Medicine
DX: N83.01 Follicular cyst of right ovary (principal); E34.9 Endocrine disorder, unspecified; R10.2 Pelvic and perineal pain
CPT/HCPCS: 76856

== ENCOUNTER → 2025-01-02 | Outpatient (CLI) | payer OTHER ==
[~2025-01-02] MED LIST changes: +GADOTERATE MEGLUMINE 10 MMOL/20 ML VIAL IV ONE
--- NOTE | 2025-01-02 19:39 | HMCIMG ---
RADIOLOGY REPORT EXAM: MRI OF THE PELVIS WITHOUT AND WITH CONTRAST CLINICAL HISTORY: Endocrine disorder COMPARISON: ULTRASOUND PELVIS - 11/05/2024 TECHNIQUE: Multiplanar, multiecho MRI of the pelvis was performed without and with administration of intravenous contrast. FINDINGS: The urinary bladder is optimally distended. No evidence of bladder calculus or wall thickening. The uterus is normal size and shape. The Right ovary is normal. Simple cyst in left ovary measuring 4cm x3 cm{ APXTR} No enhancement of the cyst on post contrast study . No solid component or internal septations . The pelvic vasculature is normal. No significant lymph node enlargement is seen in the pelvis. The rectosigmoid colon is normal. No free fluid is identified in the pelvis. The lower anterior abdominal wall is unremarkable. No evidence of inguinal herniation. The visualized osseous structures in the lumbar spine and the pelvis are unremarkable, except for degenerative changes in the lumbar spine. The bilateral hip joints are grossly normal. IMPRESSION: 1. Simple left ovarian cyst measuring 4 x 3 cm without concerning features, showing no enhancement, solid components, or internal septations on post-contrast study. 2. Degenerative changes in the lumbar spine. 3. Normal uterus and right ovary. 4. No evidence of pelvic lymphadenopathy or free fluid. 5. Unremarkable urinary bladder, pelvic vasculature, and rectosigmoid colon. 6. Grossly normal bilateral hip joints. /[place]
== END | disposition home or self-care (01) ==
LOC: RAH 14:12
PROVIDERS: ATTEND Internal Medicine
DX: N83.202 Unspecified ovarian cyst, left side (principal); N32.89 Other specified disorders of bladder; N83.9 Noninflammatory disorder of ovary, fallopian tube and broad ligament, unspecified; M47.816 Spondylosis without myelopathy or radiculopathy, lumbar region
CPT/HCPCS: 72197; A9575